=== PATIENT | female | born 1950 | race Hispanic/Latino ===

== ENCOUNTER 2022-07-05 12:37 | Emergency (ER) | payer MEDICARE ==
[~2022-07-05] VITALS: Ht 162.6 cm; Wt 75.7 kg
[2022-07-05] MEDS ORDERED: FAMOTIDINE 20 MG/2 ML VIAL IV STA (13:41)
[2022-07-05] MEDS ORDERED: KETOROLAC TROMETHAMINE 30 MG/ML VIAL IV STA (13:41)
[2022-07-05] MEDS ORDERED: SODIUM CHLORIDE 0.9% 1000ML 1,000 ML IV SCH (13:45)
[2022-07-05] MEDS ORDERED: IOPAMIDOL 370 MG/ML 100 ML INFUS..BTL INJ ONE (13:48)
[2022-07-05] MEDS ORDERED: NAPROSYN500 MG PO (15:31)
[2022-07-05 15:38] VITALS: O2SAT 98
== END 2022-07-05 15:53 | disposition home or self-care (01) ==
LOC: FSED 12:48
DX: R10.10 Upper abdominal pain, unspecified (principal); M79.18 Myalgia, other site; I10 Essential (primary) hypertension; E78.5 Hyperlipidemia, unspecified; Z85.3 Personal history of malignant neoplasm of breast
CPT/HCPCS: 74177; 80048; 80076; 81003; 85025; 99283; J1885; J7030; Q9967